=== PATIENT | male | born 1965 | race Caucasian/White ===

== ENCOUNTER 2016-08-25 05:33 | Emergency (ER) | payer SELFPAY ==
[~2016-08-25 05:33] MED LIST: ADDERALL 30 MG30 M2 PO; AMBIEN10 M1 PO; AMITIZA8 MC1 PO; AMITRIPTYLINE; AMLODIPINE BESY10 M1 PO; CEFDINIR300 M1 PO; CLONAZEPAM0.5 M2 PO; CRESTOR; CYCLOBENZAPRINE10 M1 PO; DEPO-TESTO200 MG/1 M IM; FISH OIL 11000 MG/CA PO; FLEXERIL; GABAPENTIN300 M1 PO; IBUPROFEN600 M1 PO; LORAZEPAM0.5 M1 PO; LORAZEPAM1 M1 PO; LUNESTA3 M1 PO; METOPROLOL SUCC50 M1 PO; MULTI VITAMIN1 EAC2 PO; NORCO 5-325 TA1 EACH PO; NORCO 5/3251 TAB PO; NORCO 7.5-3251 EACH PO; PANTOPRAZOLE SO40 M3 PO; PROTONIX40 M2 PO; SIMVASTATIN40 M1 PO; SLO NIACIN PO; TRAMADOL HCL50 M2 PO; TRAZODONE HCL100 M1 PO; VITAMIN E100 UNI6 PO
[2016-08-25] MEDS ORDERED: MUSCLE RELAXANT (05:58)
[2016-08-25 06:40] LABS: BASO % 0.2 % (0-2); EOS % 0.7 % (0-7); EOSINOPHIL ABSOLUTE COUNT 0.1 tho/cmm (0.0-0.7); HCT-HEMATOCRIT 46.1 % (36.0-53.5); HGB-HEMOGLOBIN 16.4 gm/dl (13.5-17.0); IMMATURE GRANULOCYTES ABSOLUTE 0.09 tho/cmm (0-0.03); LYMPH % 29.4 % (20-45); LYMPH ABSOLUTE COUNT 2.7 tho/cmm (0.8-4.5); MCH (MEAN CORPUSCULAR HGB) 30.5 pg (28.0-32.0); MCHC MEAN CORPUSCULAR HGB CONC 35.6 % (32.0-36.0); MCV (MEAN CELL VOLUME) 85.7 fl (82.0-96.0); MEAN PLATELET VOLUME 9.6 cmc (9.4-12.4); MONO % 7.6 % (0-12); MONOCYTE ABSOLUTE COUNT 0.7 tho/cmm (0.0-1.2); NEUTROPHIL ABSOLUTE COUNT 5.5 tho/cmm (1.6-8.0); NEUTROPHIL-AUTOMATED 5.5 tho/cmm (1.6-8.0); NEUTROPHILS % 61.1 % (40-80); PLATELET COUNT 344 tho/cmm (150-450); RED BLOOD COUNT 5.38 mil/cmm (4.40-5.70); WHITE BLOOD COUNT 9.1 tho/cmm (4.0-10.0)
[2016-08-25 06:50] LABS: ALBUMIN 4.1 g/dl (3.5-5.0); ALKALINE PHOSPHATASE 113 U/L (33-138); ALT/SGPT 106 U/L (12-78); ANION GAP 16 mmol/L (0-20); AST/SGOT 39 U/L (10-40); BILIRUBIN,TOTAL 0.3 mg/dl (0.0-1.5); BLOOD UREA NITROGEN 17 mg/dl (6-24); CARBON DIOXIDE-VENOUS 22 mmol/L (22-32); CHLORIDE 103 mmol/l (96-110); CREATININE 1.18 mg/dl (0.60-1.30); GLUCOSE 131 mg/dL (70-110); POTASSIUM 3.9 mmol/L (3.7-5.1); SODIUM 137 mmol/L (135-145); eGFR VALUE FOR BLACK 82 mL/Min
== END 2016-08-25 07:46 ==
LOC: EDMED 05:33
PROVIDERS: Emergency Medicine
DX: F41.9 Anxiety disorder, unspecified (principal); R07.89 Other chest pain; E78.5 Hyperlipidemia, unspecified; I10 Essential (primary) hypertension; Z88.5 Allergy status to narcotic agent; Z87.891 Personal history of nicotine dependence; Z79.899 Other long term (current) drug therapy
CPT/HCPCS: J1170; J2060; J7030

== ENCOUNTER 2016-09-18 14:46 | Emergency (ER) | payer SELFPAY ==
[~2016-09-18 14:46] MED LIST changes: +MUSCLE RELAXANT
[2016-09-18 18:45] LABS: BASO % 0.2 % (0-2); EOS % 0.9 % (0-7); EOSINOPHIL ABSOLUTE COUNT 0.1 tho/cmm (0.0-0.7); HCT-HEMATOCRIT 45.3 % (36.0-53.5); HGB-HEMOGLOBIN 16.6 gm/dl (13.5-17.0); IMMATURE GRANULOCYTES ABSOLUTE 0.13 tho/cmm (0-0.03); LYMPH % 21.6 % (20-45); LYMPH ABSOLUTE COUNT 2.7 tho/cmm (0.8-4.5); MCH (MEAN CORPUSCULAR HGB) 30.7 pg (28.0-32.0); MCV (MEAN CELL VOLUME) 83.9 fl (82.0-96.0); MEAN PLATELET VOLUME 9.5 cmc (9.4-12.4); MONO % 7.6 % (0-12); NEUTROPHIL ABSOLUTE COUNT 8.7 tho/cmm (1.6-8.0); NEUTROPHIL-AUTOMATED 8.7 tho/cmm (1.6-8.0); NEUTROPHILS % 68.7 % (40-80); PLATELET COUNT 301 tho/cmm (150-450); RED CELL DISTRIBUTION WIDTH 13.5 % (12.4-16.4); WHITE BLOOD COUNT 12.6 tho/cmm (4.0-10.0)
[2016-09-18 18:46] LABS: MCHC MEAN CORPUSCULAR HGB CONC 36.6 % (32.0-36.0)
[2016-09-18 19:00] LABS: ALBUMIN 4.1 g/dl (3.5-5.0); ALKALINE PHOSPHATASE 117 U/L (33-138); ALT/SGPT 75 U/L (12-78); ANION GAP 15 mmol/L (0-20); AST/SGOT 35 U/L (10-40); BILIRUBIN,TOTAL 0.3 mg/dl (0.0-1.5); BLOOD UREA NITROGEN 18 mg/dl (6-24); CALCIUM 9.1 mg/dl (8.5-10.5); CARBON DIOXIDE-VENOUS 21 mmol/L (22-32); CHLORIDE 97 mmol/l (96-110); CREATININE 1.26 mg/dl (0.60-1.30); GLUCOSE 101 mg/dL (70-110); LIPASE 218 U/L (73-393); POTASSIUM 3.7 mmol/L (3.7-5.1); SODIUM 129 mmol/L (135-145); eGFR VALUE FOR BLACK 76 mL/Min
[2016-09-18 19:57] LABS: URINE BILIRUBIN NEGATIVE (NEG); URINE BLOOD NEGATIVE (NEG); URINE GLUCOSE (UA) NEGATIVE (NEG); URINE KETONE NEGATIVE (NEG); URINE LEUKOCYTE ESTERASE NEGATIVE (NEG); URINE NITRITE NEGATIVE (NEG); URINE PROTEIN NEGATIVE (NEG)
[2016-09-18 20:03] LABS: URINE APPEARANCE CLEAR; URINE COLOR YELLOW
== END 2016-09-18 21:25 ==
LOC: EDMED 14:46
PROVIDERS: Emergency Medicine
DX: R19.7 Diarrhea, unspecified (principal); R10.84 Generalized abdominal pain; I10 Essential (primary) hypertension; E78.5 Hyperlipidemia, unspecified; Z85.528 Personal history of other malignant neoplasm of kidney; Z93.6 Other artificial openings of urinary tract status; Z79.899 Other long term (current) drug therapy
CPT/HCPCS: J1170; J2405; J7030; Q9967

== ENCOUNTER 2016-10-05 17:39 | Emergency (ER) | payer SELFPAY ==
[2016-10-05] MEDS ORDERED: LIPITOR40 M1 PO (18:54)
[2016-10-05] MEDS ORDERED: LODINE400 M2 PO (18:54)
[2016-10-05] MEDS ORDERED: NORVASC10 M2 PO (18:54)
[2016-10-05] MEDS ORDERED: PAMELOR10 M2 PO (18:55)
[2016-10-05] MEDS ORDERED: LOPRESSOR50 M1 PO (18:55)
[2016-10-05] MEDS ORDERED: PROTONIX40 M2 PO (18:56)
[2016-10-05] MEDS ORDERED: EFFEXOR XR75 M1 PO (18:56)
[2016-10-05] MEDS ORDERED: ZOLPIDEM TARTRA10 M2 PO (18:57)
[2016-10-05 19:44] LABS: BASO % 0.4 % (0-2); BASO ABSOLUTE COUNT 0.1 tho/cmm (0.0-0.2); EOS % 0.9 % (0-7); EOSINOPHIL ABSOLUTE COUNT 0.1 tho/cmm (0.0-0.7); HGB-HEMOGLOBIN 14.3 gm/dl (13.5-17.0); IMMATURE GRANULOCYTES ABSOLUTE 0.05 tho/cmm (0-0.03); IMMATURE GRANULOCYTES PERCENT 0.4 % (0-0.3); LYMPH % 23.3 % (20-45); LYMPH ABSOLUTE COUNT 2.6 tho/cmm (0.8-4.5); MCH (MEAN CORPUSCULAR HGB) 30.9 pg (28.0-32.0); MCHC MEAN CORPUSCULAR HGB CONC 36.7 % (32.0-36.0); MCV (MEAN CELL VOLUME) 84.2 fl (82.0-96.0); MEAN PLATELET VOLUME 9.2 cmc (9.4-12.4); MONO % 7.1 % (0-12); MONOCYTE ABSOLUTE COUNT 0.8 tho/cmm (0.0-1.2); NEUTROPHIL ABSOLUTE COUNT 7.6 tho/cmm (1.6-8.0); NEUTROPHIL-AUTOMATED 7.6 tho/cmm (1.6-8.0); NEUTROPHILS % 67.9 % (40-80); PLATELET COUNT 301 tho/cmm (150-450); RED BLOOD COUNT 4.63 mil/cmm (4.40-5.70); RED CELL DISTRIBUTION WIDTH 13.2 % (12.4-16.4); WHITE BLOOD COUNT 11.1 tho/cmm (4.0-10.0)
[2016-10-05 19:47] LABS: URINE BILIRUBIN NEGATIVE (NEG); URINE BLOOD NEGATIVE (NEG); URINE GLUCOSE (UA) NEGATIVE (NEG); URINE KETONE NEGATIVE (NEG); URINE LEUKOCYTE ESTERASE NEGATIVE (NEG); URINE NITRITE NEGATIVE (NEG); URINE PROTEIN NEGATIVE (NEG)
[2016-10-05 19:48] LABS: URINE APPEARANCE CLEAR; URINE COLOR PALE YELLOW
[2016-10-05 20:01] LABS: ALB/GLOB RATIO 1.1 (0.8-2.0); ALCOHOL (ETOH) <10 mg/dl (<10); ALKALINE PHOSPHATASE 106 U/L (33-138); ALT/SGPT 56 U/L (12-78); ANION GAP 14 mmol/L (0-20); AST/SGOT 24 U/L (10-40); BILIRUBIN,TOTAL 0.4 mg/dl (0.0-1.5); BLOOD UREA NITROGEN 13 mg/dl (6-24); CALCIUM 8.9 mg/dl (8.5-10.5); CARBON DIOXIDE-VENOUS 26 mmol/L (22-32); CHLORIDE 95 mmol/l (96-110); CREATININE 1.12 mg/dl (0.60-1.30); GLUCOSE 79 mg/dL (70-110); LIPASE 138 U/L (73-393); POTASSIUM 4.2 mmol/L (3.7-5.1); SODIUM 131 mmol/L (135-145); eGFR VALUE FOR BLACK 88 mL/Min
== END 2016-10-05 20:44 ==
LOC: EDMED 17:39
PROVIDERS: Emergency Medicine
DX: R10.12 Left upper quadrant pain (principal); G89.29 Other chronic pain; F41.9 Anxiety disorder, unspecified; R44.3 Hallucinations, unspecified; I10 Essential (primary) hypertension; E78.5 Hyperlipidemia, unspecified; Z90.89 Acquired absence of other organs; Z79.899 Other long term (current) drug therapy
CPT/HCPCS: G0480

== ENCOUNTER 2016-11-10 09:32 | Emergency (ER) | payer SELFPAY ==
[~2016-11-10 09:32] MED LIST changes: +EFFEXOR XR75 M1 PO; +LIPITOR40 M1 PO; +LODINE400 M2 PO; +LOPRESSOR50 M1 PO; +NORVASC10 M2 PO; +PAMELOR10 M2 PO; +ZOLPIDEM TARTRA10 M2 PO
[2016-11-10 10:43] LABS: BASO % 0.3 % (0-2); EOSINOPHIL ABSOLUTE COUNT 0.1 tho/cmm (0.0-0.7); HCT-HEMATOCRIT 42.6 % (36.0-53.5); HGB-HEMOGLOBIN 15.5 gm/dl (13.5-17.0); IMMATURE GRANULOCYTES ABSOLUTE 0.04 tho/cmm (0-0.03); IMMATURE GRANULOCYTES PERCENT 0.5 % (0-0.3); LYMPH % 22.9 % (20-45); MCHC MEAN CORPUSCULAR HGB CONC 36.4 % (32.0-36.0); MCV (MEAN CELL VOLUME) 85.2 fl (82.0-96.0); MEAN PLATELET VOLUME 9.6 cmc (9.4-12.4); MONO % 9.6 % (0-12); MONOCYTE ABSOLUTE COUNT 0.8 tho/cmm (0.0-1.2); NEUTROPHIL ABSOLUTE COUNT 5.8 tho/cmm (1.6-8.0); NEUTROPHIL-AUTOMATED 5.8 tho/cmm (1.6-8.0); NEUTROPHILS % 65.7 % (40-80); PLATELET COUNT 294 tho/cmm (150-450); RED CELL DISTRIBUTION WIDTH 12.7 % (12.4-16.4); WHITE BLOOD COUNT 8.8 tho/cmm (4.0-10.0)
[2016-11-10 10:48] LABS: ALB/GLOB RATIO 0.9 (0.8-2.0); ALKALINE PHOSPHATASE 124 U/L (33-138); ALT/SGPT 57 U/L (12-78); ANION GAP 15 mmol/L (0-20); AST/SGOT 32 U/L (10-40); BILIRUBIN,TOTAL 0.5 mg/dl (0.0-1.5); BLOOD UREA NITROGEN 12 mg/dl (6-24); CALCIUM 9.2 mg/dl (8.5-10.5); CARBON DIOXIDE-VENOUS 23 mmol/L (22-32); CHLORIDE 99 mmol/l (96-110); CREATININE 1.06 mg/dl (0.60-1.30); GLUCOSE 144 mg/dL (70-110); LIPASE 152 U/L (73-393); POTASSIUM 3.6 mmol/L (3.7-5.1); SODIUM 133 mmol/L (135-145); eGFR VALUE FOR BLACK >90 mL/Min
[2016-11-10 11:21] LABS: URINE BILIRUBIN NEGATIVE (NEG); URINE BLOOD NEGATIVE (NEG); URINE GLUCOSE (UA) NEGATIVE (NEG); URINE KETONE NEGATIVE (NEG); URINE LEUKOCYTE ESTERASE NEGATIVE (NEG); URINE NITRITE NEGATIVE (NEG); URINE PROTEIN NEGATIVE (NEG)
[2016-11-10 11:24] LABS: URINE APPEARANCE CLEAR; URINE COLOR YELLOW
[2016-11-10] MEDS ORDERED: ZANAFLEX4 M2 PO (11:33)
[2016-11-10] MEDS ORDERED: NORCO 5-325 TA1 EACH PO (11:50)
[2016-11-10] MEDS ORDERED: ZOFRAN4 M2 PO (11:50)
== END 2016-11-10 12:00 ==
LOC: EDMED 09:32
PROVIDERS: Physician Assistant
DX: R10.13 Epigastric pain (principal); R10.12 Left upper quadrant pain; R10.32 Left lower quadrant pain; R11.2 Nausea with vomiting, unspecified; R19.7 Diarrhea, unspecified; I10 Essential (primary) hypertension; Z85.53 Personal history of malignant neoplasm of renal pelvis; F17.200 Nicotine dependence, unspecified, uncomplicated; Z79.899 Other long term (current) drug therapy
CPT/HCPCS: J1170; J2405; J7030; Q9967